=== PATIENT | male | born 1965 | race African-American/Black ===

== ENCOUNTER 2017-02-02 05:19 | Emergency (ER) | payer OTHER ==
--- NOTE | 2017-02-02 05:37 | PDOC ---
History of Present Illness - General History Source: Patient Exam Limitations: No Limitations - History of Present Illness Initial Comments: 02/02/17 06:16 The patient is a 51 year old male with a significant PMH of schizophrenia and chronic constipation who presents to the emergency department with abdominal pain and constipation beginning approximately 3 days ago. The patient states his abdominal pain is exacerbated by sitting down. The patient has taken magnesium sulfate and dulcolax with no relief of symptoms. The patient denies chest pain, shortness of breath, headache and dizziness. Denies fever, chills, nausea, vomit, and diarrhea. Denies dysuria, frequency, urgency and hematuria. Allergies: NKA Past surgical history: None reported. Social history: No reported alcohol, drug, or cigarette use. PCP: Dr. Martin <Chelita Shepard - Last Filed: 02/02/17 06:21> <Rosalee Rollins - Last Filed: 02/02/17 06:58> - General Stated Complaint: ABDOMINAL PAIN Time Seen by Provider: 02/02/17 05:37 Past History <Chelita Shepard - Last Filed: 02/02/17 06:21> - Suicide/Smoking/Psychosocial Hx Smoking Status: No Smoking History: Never smoked Number of Cigarettes Smoked Daily: 0 <Rosalee Rollins - Last Filed: 02/02/17 06:58> - Past Medical History Allergies/Adverse Reactions: Allergies Allergy/AdvReac Type Severity Reaction Status Date / Time No Known Allergies Allergy Verified 02/02/17 05:56 Home Medications: Ambulatory Orders Clozapine [Fazaclo] 150 mg PO DAILY 11/02/12 Clozapine [Fazaclo] 350 mg PO DAILY 11/02/12 Divalproex [Depakote -] 1,000 mg PO DAILY 11/02/12 Divalproex [Depakote -] 500 mg PO DAILY 11/02/12 Docusate Sodium [Colace -] 100 mg PO BID #20 capsule 11/02/12 Lactulose 20 gm PO HS PRN #30 ml 11/02/12 Lorazepam 1 mg PO BID 11/02/12 Lorazepam [Ativan] 1 mg PO PRN PRN 11/02/12 Polyethylene Glycol 3350 [Miralax 255 gm Btl] 17 gm PO DAILY PRN #1 bottle 11/02 Risperidone [Risperdal M-Tab -] 4 mg PO BID 11/02/12 Review of Systems - Review of Systems Able to Perform ROS?: Yes Comments:: 02/02/17 06:21 CONSTITUTIONAL: Absent: fever, no chills, no fatigue EYES: Absent: visual changes ENT: Absent: ear pain, no sore throat CARDIOVASCULAR: Absent: chest pain, no palpitations RESPIRATORY: Absent: cough, no SOB GI: Absent: no nausea, no vomiting, no diarrhea Present: abdominal pain, constipation GENITOURINARY: Absent: dysuria, no frequency, no hematuria MUSKULOSKELETAL: Absent: back pain, no arthralgia, no myalgia SKIN: Absent: rash NEURO: Absent: headache <Chelita Shepard - Last Filed: 02/02/17 06:21> *Physical Exam - Vital Signs Last Vital Signs Temp Pulse Resp BP Pulse Ox 97.6 F 99 H 20 107/75 99 02/02/17 05:56 02/02/17 05:56 02/02/17 05:56 02/02/17 05:56 02/02/17 05:56 - Physical Exam Comments: 02/02/17 06:23 GENERAL: Well-appearing, well-nourished. No apparent distress. HEENT: Normocephalic, atraumatic. PERRL, EOM intact. CARDIOVASCULAR: Normal S1, S2. Regular rate and rhythm. PULMONARY: Clear to auscultation bilaterally. ABDOMEN: Soft. Non-tender. Non-distended. No rebound or guarding. No organomegaly. EXTREMITIES: Normal ROM in all four extremities. No gross deformities. SKIN: Warm, dry. No rash NEUROLOGICAL: No focal neurological deficits. <Chelita Shepard - Last Filed: 02/02/17 06:21> Medical Decision Making - Medical Decision Making 02/02/17 06:57 Pt has a large amount of stool in his gut. He will be hydrated with IVF to facilitaite movement of Bowels. He will be signed out to the day ER docs. <Rosalee Rollins - Last Filed: 02/02/17 06:58> *DC/Admit/Observation/Transfer - Attestations Scribe Attestion: 02/02/17 06:24 Documentation prepared by Chelita Shepard, acting as medical review specialist for Rosalee Rollins MD. <Chelita Shepard - Last Filed: 02/02/17 06:21> <Rosalee Rollins - Last Filed: 02/02/17 06:58> - Referrals Referrals: Chau Martin [Primary Care Provider] -
[2017-02-02 05:58] VITALS: PULSE 99; TEMP 97.6; BMI 27.1
[2017-02-02] MEDS ORDERED: LACTULOSE 20 GM/30 ML UDC (FOR ORAL USE ONLY) PO ONE (06:00)
[2017-02-02] MEDS ORDERED: POLYETHYLENE GLYCOL 3350 119 GM BTL PO ONE (06:00)
[2017-02-02] MEDS ORDERED: LACTULOSE 20 GM/30 ML UDC (FOR ORAL USE ONLY) ONE (06:12)
[2017-02-02] MEDS ORDERED: SODIUM CHLORIDE 0.9% 500 ML INFUS.BAG IV ONE (06:51)
--- NOTE | 2017-02-02 07:28 | PDOC ---
*Physical Exam - Vital Signs Last Vital Signs Temp Pulse Resp BP Pulse Ox 97.6 F 99 H 20 107/75 99 02/02/17 05:56 02/02/17 05:56 02/02/17 05:56 02/02/17 05:56 02/02/17 05:56 - Physical Exam Gastrointestinal/Abdominal: positive: Flat, Soft. negative: Tender, Increased Bowel Sounds, Guarding, Rebound, Tenderness ED Treatment Course - Medications Given in the ED: ED Medications Discontinued Medications Generic Name Dose Route Start Last Admin Trade Name Yue PRN Reason Stop Dose Admin Lactulose 20 gm 02/02/17 06:00 02/02/17 06:20 Cephulac (Oral Use) PO 02/02/17 06:01 20 gm ONCE ONE Administration Polyethylene Glycol 17 gm 02/02/17 06:00 02/02/17 06:21 Miralax (For Daily Use) - PO 02/02/17 06:01 17 gm ONCE ONE Administration Medical Decision Making - Medical Decision Making 02/02/17 07:27 Reevaluation 7:30 AM. Patient now has had 2 bowel movements and feels much better. His abdominal examination is benign and he is asking to go home. No indication for labs at this time will discharge home with course of MiraLAX and Colace he will follow-up with his doctor this week Findings, the need for follow-up, strict return instructions discussed with patient. *DC/Admit/Observation/Transfer Diagnosis at time of Disposition: Constipation Qualifiers: Constipation type: other constipation type Qualified Code(s): K59.09 - Other constipation - Discharge Dispostion Disposition: HOME Admit: No - Referrals Referrals: Chau Martin [Primary Care Provider] - - Patient Instructions Printed Discharge Instructions: Constipation Additional Instructions: Drink more water each day. Take 1 packet of MiraLAX once a day for the next 7 days. Take 1 tab of Colace 3 times a day. Follow-up with your doctor this week. Return to the emergency department for any severe abdominal pain fever or for any concerns. - Post Discharge Activity
[2017-02-02 07:30] VITALS: BP 128/71
== END 2017-02-02 07:31 | disposition home or self-care (01) ==
LOC: JER 05:19
PROC: 3E0337Z Introduction of Electrolytic and Water Balance Substance into Peripheral Vein, Percutaneous Approach (ICD-10-PCS; principal; 2017-02-02)
DX: K59.09 Other constipation (principal)
CPT/HCPCS: 74020-TC; 99282-25

== ENCOUNTER 2018-03-01 08:25 | Emergency (ER) | payer OTHER ==
[2018-03-01 08:30] VITALS: BMI 27.8
--- NOTE | 2018-03-01 09:30 | PDOC ---
History of Present Illness - General History Source: Patient Exam Limitations: No Limitations - History of Present Illness Initial Comments: 03/01/18 09:42 The patient is a 53 year old male with a significant PMH of schizophrenia and chronic constipation who presents to the emergency department with constipation , anal pain, and bloating for the past 12 days. The patient states she has ee eating and drinking normally. Patient has been taking miralax with with no improvement. Denies abdominal surgeries in the past. Admits to having fecal retention years ago for which he was prescribed laxatives. The patient denies chest pain, shortness of breath, headache and dizziness. Denies fever, chills, nausea, vomit, and diarrhea. Denies dysuria, frequency, urgency and hematuria. Allergies: NKA Past surgical history: None reported. Social history: No reported alcohol, drug, or cigarette use. PCP: Dr. Martin <Chelita Shepard - Last Filed: 03/01/18 09:42> <Mirta Shukla - Last Filed: 03/01/18 14:31> - General Chief Complaint: Constipation Stated Complaint: ABD PAIN Time Seen by Provider: 03/01/18 08:43 Past History <Chelita Shepard - Last Filed: 03/01/18 09:42> - Past Medical History COPD: No Dementia: No Psychiatric Problems: Yes (schizopherinia) - Surgical History Gastric Stapling: No - Immunization History Immunization Up to Date: No - Suicide/Smoking/Psychosocial Hx Smoking Status: No Smoking History: Never smoked Have you smoked in the past 12 months: No Number of Cigarettes Smoked Daily: 0 Information on smoking cessation initiated: No Hx Alcohol Use: No Drug/Substance Use Hx: No Substance Use Type: None <Mirta Shukla - Last Filed: 03/01/18 14:31> - Past Medical History Allergies/Adverse Reactions: Allergies Allergy/AdvReac Type Severity Reaction Status Date / Time No Known Allergies Allergy Verified 02/02/17 05:56 Home Medications: Ambulatory Orders Clozapine [Fazaclo] 150 mg PO DAILY 11/02/12 Clozapine [Fazaclo] 350 mg PO DAILY 11/02/12 Divalproex [Depakote -] 1,000 mg PO DAILY 11/02/12 Divalproex [Depakote -] 500 mg PO DAILY 11/02/12 Docusate Sodium [Colace -] 100 mg PO BID #20 capsule 11/02/12 LORazepam [Ativan] 1 mg PO PRN PRN 11/02/12 Lorazepam 1 mg PO BID 11/02/12 Polyethylene Glycol 3350 [Miralax 255 gm Btl] 17 gm PO DAILY PRN #1 bottle 11/02 Risperidone [Risperdal M-Tab -] 4 mg PO BID 11/02/12 Lactulose (Oral Use) [Cephulac -] 20 gm PO TID PRN #473 ml 03/01/18 Review of Systems - Review of Systems Able to Perform ROS?: Yes Comments:: 03/01/18 09:43 ADULT ROS GENERAL/CONSTITUTIONAL: No fever or chills. No weakness. HEAD, EYES, EARS, NOSE AND THROAT: No change in vision. No ear pain or discharge. No sore throat. CARDIOVASCULAR: No chest pain or shortness of breath. RESPIRATORY: No cough, wheezing, or hemoptysis. GASTROINTESTINAL: No nausea, vomiting, or diarrhea. (+) Constipation. (+) Abdominal pain and bloating. GENITOURINARY: No dysuria, frequency, or change in urination. MUSCULOSKELETAL: No joint or muscle swelling or pain. No neck or back pain. SKIN: No rash NEUROLOGIC: No headache, vertigo, loss of consciousness, or change in strength/ sensation. ENDOCRINE: No increased thirst. No abnormal weight change. HEMATOLOGIC/LYMPHATIC: No anemia, easy bleeding, or history of blood clots. ALLERGIC/IMMUNOLOGIC: No hives or skin allergy. <Chelita Shepard - Last Filed: 03/01/18 09:42> *Physical Exam - Vital Signs Last Vital Signs Temp Pulse Resp BP Pulse Ox 98.4 F 76 18 105/75 98 03/01/18 08:27 03/01/18 08:27 03/01/18 08:27 03/01/18 08:27 03/01/18 08:27 - Physical Exam Comments: 03/01/18 09:44 ADULT EXAM GENERAL: Awake, alert, and fully oriented, in no acute distress LUNGS: Breath sounds equal, clear to auscultation bilaterally. No wheezes, and no crackles HEART: Regular rate and rhythm, normal S1 and S2, no murmurs, rubs or gallops ABDOMEN: Soft, nontender to deep palpation, normoactive bowel sounds. No guarding or rebound. EXTREMITIES: Normal range of motion, no edema. No clubbing or cyanosis. No cords, erythema, or tenderness NEUROLOGICAL: Cranial nerves II through XII grossly intact. Normal speech, normal gait. SKIN: Warm, Dry, normal turgor, no rashes or lesions noted. <Chelita Shepard - Last Filed: 03/01/18 09:42> - Vital Signs Last Vital Signs Temp Pulse Resp BP Pulse Ox 98.4 F 76 18 105/75 98 03/01/18 08:27 03/01/18 08:27 03/01/18 08:27 03/01/18 08:27 03/01/18 08:27 <Mirta Shukla - Last Filed: 03/01/18 14:31> Moderate Sedation - Procedure Monitoring Vital Signs: Procedure Monitoring Vital Signs Temperature 98.4 F 03/01/18 08:27 Pulse Rate 76 03/01/18 08:27 Respiratory Rate 18 03/01/18 08:27 Blood Pressure 105/75 03/01/18 08:27 O2 Sat by Pulse Oximetry (%) 98 03/01/18 08:27 <Chelita Shepard - Last Filed: 03/01/18 09:42> - Procedure Monitoring Vital Signs: Procedure Monitoring Vital Signs Temperature 98.4 F 03/01/18 08:27 Pulse Rate 76 03/01/18 08:27 Respiratory Rate 18 03/01/18 08:27 Blood Pressure 105/75 03/01/18 08:27 O2 Sat by Pulse Oximetry (%) 98 03/01/18 08:27 <Mirta Shukla - Last Filed: 03/01/18 14:31> ED Treatment Course - LABORATORY CBC & Chemistry Diagram: 03/01/18 09:53 03/01/18 09:53 <Mirta Shukla - Last Filed: 03/01/18 14:31> Medical Decision Making - Medical Decision Making 03/01/18 12:44 Pt presents to the ED complaining of constipation x 12 days. Abdomen is non tender, but given that the patient is no longer passing even flatus, will check CT to rule out obstruction. Will discharge home with rx for lactulouse if CT is negative. <Mirta Shukla - Last Filed: 03/01/18 14:31> *DC/Admit/Observation/Transfer - Attestations Scribe Attestion: 03/01/18 09:45 Documentation prepared by Chelita Shepard, acting as medical voucher clerk for Mirta Shukla MD. <Chelita Shepard - Last Filed: 03/01/18 09:42> - Discharge Dispostion Decision to Admit order: No <Mirta Shukla - Last Filed: 03/01/18 14:31> Diagnosis at time of Disposition: Constipation Qualifiers: Constipation type: unspecified constipation type Qualified Code(s): K59.00 - Constipation, unspecified - Discharge Dispostion Disposition: HOME Condition at time of disposition: Good - Prescriptions Prescriptions: Lactulose (Oral Use) [Cephulac -] 20 gm PO TID PRN #473 ml PRN Reason: Constipation - Referrals Referrals: Chau Martin [Primary Care Provider] - - Patient Instructions Printed Discharge Instructions: DI for Constipation Additional Instructions: You came to the ED for constipation. The cat scan does not show a blockage, but it does show a lot of stool. It is important for you to have a bowel movement as soon as possible. Take the lactulose three times per day, also make sure that you drink plenty of water and that you eat a high fiber diet. Make sure that you return to the ED tomorrow if you are still unable to have a bowel movement. Also return for vomiting, abdominal pain, fever, other new or worsening symptoms. - Post Discharge Activity
[2018-03-01 10:25] LABS: BASO % 0.4 % (0-2.0); HEMATOCRIT 36.8 % (35.4-49); HEMOGLOBIN 12.9 GM/dL (11.7-16.9); LYMPH % 24.2 % (8-40); MCH 29.7 pg (25.7-33.7); MEAN CELL VOLUME 84.9 fl (80-96); MEAN PLT VOLUME 8.6 fl (7.5-11.1); MONO % 11.9 % (3.8-10.2); NEUT % 63.5 % (42.8-82.8); PLATELET COUNT 142 K/MM3 (134-434); RBC 4.34 M/mm3 (4.00-5.60); RDW 15.5 % (11.9-15.9); WHITE BLOOD COUNT 7.7 K/mm3 (4.0-10.0)
[2018-03-01 11:09] LABS: ALBUMIN 3.6 g/dl (3.4-5.0); ALK PHOS 60 U/L (45-117); ANION GAP 6 MMOL/L (8-16); BILIRUBIN,TOTAL 0.4 mg/dL (0.2-1); BLOOD UREA NITROGEN 17 mg/dL (7-18); CALCIUM 8.4 mg/dL (8.5-10.1); CHLORIDE 106 mmol/L (98-107); CO2 29 mmol/L (21-32); CREATININE 1.2 mg/dL (0.55-1.3); GLUCOSE,RANDOM 131 mg/dL (74-106); POTASSIUM 3.9 mmol/L (3.5-5.1); SGOT/AST 33 U/L (15-37); SGPT/ALT 48 U/L (13-61); SODIUM 141 mmol/L (136-145); TOT PROT 6.7 g/dl (6.4-8.2)
[2018-03-01] MEDS ORDERED: LACTULOSE 20 GM/30 ML UDC (FOR ORAL USE ONLY) PO ONE (14:26)
[2018-03-01] MEDS ORDERED: DOCUSATE SODIUM 100 MG CAPSULE (FP) PO PRN (14:31)
[2018-03-01 15:09] VITALS: BP 110/68; PULSE 68; TEMP 98.2
[2018-03-01] MEDS ORDERED: SENNOSIDES 8.6MG TABLET (FP) PO SCH (22:00)
== END 2018-03-01 15:10 | disposition home or self-care (01) ==
LOC: JER 08:25
DX: K59.00 Constipation, unspecified (principal); F20.9 Schizophrenia, unspecified
CPT/HCPCS: 36415; 74177-TC; 80053; 83605; 85025; 99282-25